=== PATIENT | male | born 1980 | race Caucasian/White ===

== ENCOUNTER 2023-01-23 10:17 | Emergency (ER) | payer MEDICAID, SELFPAY ==
[2023-01-23 10:21] VITALS: BP 156/87; PULSE 76; RESP 16; TEMP 36; O2SAT 99
--- NOTE | 2023-01-23 10:30 | DI.CT_ITS ---
Exam(s) CT ABDOMEN PELVIS WO/W EXAM: CT ABDOMEN PELVIS WO/W CLINICAL HISTORY: PleaseCT urogram 2/2rightFP hematuria TECHNIQUE: Imaging Protocol: Axial computed tomography images with coronal and sagittal reformatted images were created and reviewed CONTRAST MATERIAL: Intravenous: Omnipaque 350 Contrast volume:100 mL Oral: No COMPARISON: No exams were available for comparison FINDINGS: ABDOMEN: Lung Bases: Normal where visualized. Liver: Normal density. No measurable mass. Portal, Superior Mesenteric, and Splenic Veins: Unremarkable. Gallbladder and Biliary Tract: No radiodense calculus or dilation. Pancreas: Normal density, no abnormal calcifications or inflammatory process. Spleen: Normal. Adrenals: No masses seen. Kidneys: Normal size, contour and axis. No radiodense stones or obstructive uropathy. No masses seen. Abdominal Aorta: Abdominal portion non-dilated. Bowel: No obstruction or bowel wall thickening. Appendix is unremarkable. Peritoneal Cavity: No ascites, collection or mesenteric inflammatory response. No free air. Lymph Nodes: Within normal limits. Bones: Within normal limits for the patient's age. 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 Soft Tissues: Unremarkable. PELVIS: Bladder: Symmetric distention, no gross wall thickening. Reproductive Organs: Unremarkable as visualized. Lymph Nodes: Within normal limits. Bones: Within normal limits for the patient's age. IMPRESSION: 1. No acute abdominal or pelvic process. 2. No evidence of nephrolithiasis or hydronephrosis. 3. Findings were discussed with the emergency department at 12:46 p.m. on 01/23/2023. RADIATION DOSE DELIVERED: 2,220.57mGy.cm Total DLP 2,220.57mGy.cm Total DLP DATA REPOSITORY: All CT scans at this facility are submitted to the National Radiology Data Registry (NRDR) Dose Index Registry (DIR) with the [employer] (ACR). RADIATION OPTIMIZATION: All CT scans at this facility use at least one of these dose optimization te chniques: automated exposure control; mA and/or kV adjustment per patient size (includes targeted exa ms where dose is matched to clinical indication); or iterative reconstruction.
--- NOTE | 2023-01-23 10:46 | W.ED.GENAD ---
Discharge Plan Disposition Patient Disposition: Home Discharge Details Clinical Impression: Hematuria Primary Care Provider: None,None ED Provider: Fransisco Saha Home Meds and New Rx's Prescriptions: No Action No Known Home Meds Discharge Instructions Instructions: Hematuria (ED) Additional Instructions: You were seen in the emergency department for your hematuria which is bleeding from your urethra. If you develop sudden onset abdominal pain any burning when you urinate or if you have any other concerns please return to the emergency department. Otherwise you will receive a call for follow-up with a primary care provider in the next 2 weeks to have your urine checked again. If you develop any fevers or flank pain please return to the emergency department. Discharge Data Discharge Date/Time-TO BE ENTERED AT DEPARTURE: 01/23/23 14:13 Medical Decision Making This is an overall very well-appearing normothermic and not tachycardic previously healthy 42-year-old male with recent trauma to right flank now with hematuria concerning for intra-abdominal trauma versus renal injury. Will complete CT scan of abdomen pelvis with and without contrast to also assess for malignancy based on the patient's age. He does not have risk factors for malignancy as he is not on cyclophosphamide nor has he had any recent pelvic radiation nor history of malignancy. He is not a tobacco smoker and he denies exposure to any chemical substances or dyes. He is not a routine ibuprofen user to suggest renal injury secondary to NSAIDs. He has no history of sickle cell disease. He has never had a urinary tract infection and he denies dysuria frequency. He has never had a sexually transmitted infection and is in a monogamous sexual relationship so no concern for sexually transmitted infection. Will assess hemoglobin and renal function with CBC and BMP respectively. Based on age and lack of vascular risk factors I am not concerned for AAA. I advised patient that if his evaluation was reassuring in the ED that he would benefit from repeat urinalysis. 12:47 PM Reassuring basic metabolic panel with creatinine of 0.85. Very mild hyperglycemia with a glucose of 111 but normal bicarbonate. CBC with no anemia no thrombocytopenia nor any leukocytosis. Dr. Sherwood from radiology read the patient's CT which showed no acute abdominal or pelvic processes. No evidence of nephrolithiasis nor hydronephrosis. We are still awaiting urinalysis. We will add on a CK to assess for myoglobinuria and rhabdomyolysis. 2:15pm I spoke to Dr. Ceja from urology who will follow up with patient in 2-4 weeks. HPI General Date/Time Provider Initiated Documentation: 01/23/23 10:18. HPI Narrative: This is a previously healthy 42-year-old male arriving to the emergency department via private vehicle with his in the setting of hematuria. Patient notes that this morning while he was sitting on the toilet having a bowel movement he noticed hematuria. He had previously voided once earlier in the morning and had not had hematuria. He denies any bright red blood per rectum at any rectal bleeding. He smokes marijuana but denies routine tobacco, ethanol, and illicits. He has not used any chemical dyes nor chemicals at work. 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 He has never had any history of urological procedures nor any malignancies in the past. He took ibuprofen several weeks ago but does not routinely take ibuprofen or other NSAIDs. He has never had pelvic radiation. He is sexually active with a single female partner. They are monogamous. He has never had a sexually transmitted infection. He has never had a urinary tract infection. He denies history of sickle cell disease. He does note that approximately 1 month ago he fell down the stairs and struck his right flank on a corner of a stair. He has subsequently seen his chiropractor and was performing a bend 3 weeks ago over a chair when he fell over his head and had pain in his back. He felt as if he subsequently had swelling in his lower abdomen. He is also felt some wheezing in his lungs but denies any fevers and shortness of breath. He was nauseous yesterday and endorse generalized malaise but has not been vomiting. Related Data Home Medications Medication Instructions Recorded Confirmed Unknown [No Known Home Meds] 01/23/23 01/23/23 Allergies Allergy/AdvReac Type Severity Reaction Status Date / Time No Known Allergies Allergy Unverified 01/23/23 10:27 General Stated Complaint: Urinary MAURIZIO: 4 PFSH All Active Problems (Updated 01/23/23 @ 14:00 by Fransisco Saha MD) Hematuria (Acute) Social History Smoking/Tobacco Use Status: Never Smoking risk assessment performed?: Yes Alcohol Intake: never Drug use: Daily Substance use type: marijuana Exam Narrative Exam Narrative: General: Well-appearing in no acute distress speaking in complete sentences. Head: Normocephalic, atraumatic Ear, nose, mouth, throat: Grossly normal inspection. Normal voice, handling secretions normally. Eyes: Nonicteric sclera with no conjunctival pallor. Neck: Trachea midline. Cardiovascular: Well-perfused distal extremities. Respiratory: Nonlabored respiration. Gastrointestinal: Nondistended abdomen. Soft nontender abdomen. Back: Overlying the right flank there is a small approximately 2 x 2 centimeter well-healing bruise with associated mild tenderness. No midline thoracic nor lumbar spinal tenderness. Musculoskeletal: No edema. Moving all 4 extremities spontaneously. Skin: Normal for age and race, grossly normal temperature and turgor. No acute rash. Neurologic: Alert and appropriate, no apparent acute deficits. Psychiatric: Mood and manner are appropriate. Grooming and personal hygiene are appropriate. Course Vital Signs Vital signs: Vital Signs Temperature 36.0 C L 01/23/23 10:21 Pulse 76 01/23/23 10:21 Respiratory Rate 16 01/23/23 10:21 Blood Pressure 156/87 H 01/23/23 10:21 Pulse Oximetry 99 01/23/23 10:21 Temperature 36.0 C L 01/23/23 10:21 Temperature Source Tympanic 01/23/23 10:21 Pulse 76 01/23/23 10:21 Respiratory Rate 16 01/23/23 10:21 Respiratory Effort Short of Breath 01/23/23 10:25 Blood Pressure 156/87 H 01/23/23 10:21 Pulse Oximetry 99 01/23/23 10:21 Pain Level 2 01/23/23 10:26 PAWSS Have you Been Recently Intoxicated or Drunk Within the Last 30 days?: No Have you Ever Experienced Previous Episodes of Alcohol Withdrawal?: No Have you ever Experienced Withdrawal Seizures?: No Have you ever Experienced Delirium Tremens(DT)s?: No Have you ever undergone Alcohol Rehabilitation Treatment (i.e, inpt ot outpatient treatment programs)?: No Have you ever Experienced Blackouts?: No Have you ever Combined Alcohol with other Downers within the last 90 days?: No Have you ever Combined Alcohol with any other Substance of Abuse during the last 90 days?: No Result: 0
[2023-01-23 11:12] LABS: Abs Immature Grans 0.01 10^3/uL (0.0-0.06); Absolute Basophil Count 0.04 10^3/uL (0.0-0.2); Absolute Eosinophil Count 0.05 10^3/uL (0.0-0.7); Absolute Lymphocyte Count 1.74 10^3/uL (1.2-3.4); Absolute Monocyte Count 0.35 10^3/uL (0.1-0.8); Absolute Neutrophil Count 3.44 10^3/uL (1.2-6.7); Basophils % 0.7; Eosinophils % 0.9; HCT 41.9 % (40.0-50.0); HGB 14.4 g/dL (13.5-17.5); Immature Grans % 0.2; Lymphocytes % 30.9; MCH 31.6 pg (27.0-33.0); MCHC 34.4 % (32.0-36.0); MCV 92 fL (80-95); Monocytes % 6.2; Neutrophils % 61.1; Platelet Count 257 10^3/uL (130-400); RBC 4.56 10^6/uL (4.36-5.78); RDW 11.9 % (11.8-14.1); RDW-SD 39.9 fL; WBC 5.63 10^3/uL (4.4-10.8)
[2023-01-23] MEDS: Omnipaque 350 MG/ML 500 ML BTL-Imaging package IJ (12:33)
[2023-01-23] MEDS: Normal Saline - Diluent 50 ML VIAL IJ (12:34)
[2023-01-23] MEDS: Normal Saline Flush 10 ML SYR IVP (12:34)
[2023-01-23 13:07] LABS: Anion Gap 9.1 mmol/L (3-11); BUN 16 mg/dL (7-18); CO2 25.9 mmol/L (21.0-32.0); CREATININE 0.9 mg/dL (0.70-1.30); Calcium 9.2 mg/dL (8.5-10.1); Chloride 105 mmol/L (98-107); Estimated GFR 110.04 (mL/min/1.73m2); Glucose 111 mg/dL (74-106); Potassium 3.7 mmol/L (3.5-5.1); Sodium 140 mmol/L (136-145)
[2023-01-23 13:15] LABS: Creatine Kinase 195 U/L (39-308)
[2023-01-23 13:32] LABS: Bilirubin Negative (Negative); Blood Moderate (Negative); Clarity Sl Cloudy (Clear); Glucose Negative (Negative); Ketones 15 mg/dL (Negative); Leukocyte Esterase Negative (Negative); Nitrite Negative (Negative); Urobilinogen 0.2 mg/dL (Up to 0.2)
[2023-01-23 13:50] LABS: Epithelial Cells Negative HPF (Negative); Other Cells Negative (Negative); RBC >50 HPF (0-2); WBC Negative HPF (0-5)
[2023-01-23 13:51] LABS: Bacteria Rare HPF (Negative); C & S Indicated? No; Casts Negative LPF (Negative); Crystals Negative HPF (Negative); Mucus Negative (Negative)
[2023-01-23 14:11] VITALS: BP 137/67; PULSE 89; RESP 16; TEMP 36.7; O2SAT 99
--- NOTE | 2023-01-23 14:53 | NUR.NOTE ---
Nursing Note:Referral given to Care Management for needs PCP, establish care, repeat urinalysis, hematuria/in 2 weeks.
--- NOTE | 2023-01-24 08:55 | NUR.NOTE ---
Nursing Note: Patient called stating that he wanted another urology referral besides [facility]. He does have an appt. at [facility]. I suggested to him that he could call his PCP for a referral to the second one, he could also call that office to try and make an appt. and if they need the note for reference call medical records to have it faxed.
--- NOTE | 2023-01-24 13:32 | PDOC.ERCMACT ---
- If Service Date Differs Date of service: 01/24/23 Time of Service: 13:32 Care Management Activity Note Jaquan is seen in the ED for hematuria. At the request of ED provider, AKI coordinates a referral to Tan Patel MD, of [facility], t-doc, to assist Jaquan in obtaining a follow up appointment in 2 weeks and in establishing care with a PCP. He has Medicaid for insurance.
== END 2023-01-23 14:13 | disposition home or self-care (01) ==
PROVIDERS: Emergency Provider Emergency Medicine
DX: R31.9 Hematuria, unspecified (principal); R73.9 Hyperglycemia, unspecified; S30.1XXA Contusion of abdominal wall, initial encounter; X58.XXXA Exposure to other specified factors, initial encounter
CPT/HCPCS: 36415; 80048; 82550; 99285; 74178; 81003; 81015; 85025; 99282

== ENCOUNTER 2023-01-25 17:24 | Outpatient (REF) | payer MEDICAID, SELFPAY ==
[2023-01-25 21:54] LABS: Bilirubin Negative (Negative); Blood Trace-intact (Negative); Clarity Clear (Clear); Glucose Negative (Negative); Ketones 40 mg/dL (Negative); Leukocyte Esterase Negative (Negative); Nitrite Negative (Negative); Urobilinogen 0.2 mg/dL (Up to 0.2); pH 5.5 (5-8)
[2023-01-25 21:57] LABS: PTT Activated 26.8 sec (21.5-31.9)
[2023-01-25 22:03] LABS: Bacteria Rare HPF (Negative); C & S Indicated? No; Casts Negative LPF (Negative); Crystals Negative HPF (Negative); Epithelial Cells Rare HPF (Negative); Mucus Negative (Negative); RBC 0-2 HPF (0-2); WBC Negative HPF (0-5)
[2023-01-25 22:08] LABS: TSH (W/Ref FT4) 1.01 uIU/mL (0.36-3.74)
[2023-01-26 19:41] LABS: PSA, Screening 0.7 ng/mL (<=2.5)
== END 2023-01-25 17:25 | disposition home or self-care (01) ==
LOC: NCHCN 17:24
PROVIDERS: Visit Provider Family Medicine
DX: R31.9 Hematuria, unspecified (principal)
CPT/HCPCS: 84153; 81003; 81015; 84443; 85610; 85730

== ENCOUNTER 2024-07-25 17:48 | Emergency (ER) | payer MEDICAID, SELFPAY ==
[2024-07-25 17:51] VITALS: BP 141/84; PULSE 94; RESP 18; TEMP 36.4; O2SAT 97
--- NOTE | 2024-07-25 18:15 | DI.RAD_ITS ---
Exam(s) XR CHEST 2V PA LATERAL EXAM: XR CHEST 2V PA LATERAL CLINICAL HISTORY: fever, shortness of breath. TECHNIQUE: 2D digital imaging was performed. COMPARISON: CT CT ABDOMEN PELVIS WO/W from 01/23/2023 FINDINGS: 2 views: Heart size is normal. The mediastinum is not widened. Left lung is clear. There is a vertically orientated linear lucency projected over the medial aspect of the right upper l obe. Possibly representing scarring or atypical appearance of accessory azygos lobe. Cannot exclude atypical pneumothorax. The remainder of the right lung is clear. There are no pleural effusions. IMPRESSION: Right lung finding as above. Possibly scarring or pleural reflection versus atypical accessory azygo s lobe. If clinically indicated follow-up CT scan of the chest can be performed for added specificit y. DATA REPOSITORY: RADIATION DOSE DELIVERED:
[2024-07-25 18:19] VITALS: RESP 16
[2024-07-25 18:23] VITALS: BP 141/84; PULSE 94; RESP 16; TEMP 37.7; O2SAT 97
--- OUTSIDE RECORDS SUMMARY | 2024-07-25 19:11 | XMS_ITS | Continuity of Care Document ---
Author Organization [facility] Address [address] [place] [address] Care Team Providers Care Metal Machine Setter Name Role Phone SLOANE GRIFFIN, MANASA Andersen Primary Care Physician [phone] Encounter [facility] NBR [id number] Date(s): 11/20/23 - 11/20/[address] [address] [place] Encounter Diagnosis Pain in right shoulder(Final) - Discharge Disposition: Home or Self Care Attending Physician: Franky Lyons MD Admitting Physician: Franky Lyons MD Referring Physician: Franky Lyons MD Allergies, Adverse Reactions, Alerts Substance Reaction Severity Status penicillins Unknown Unknown Active Problem List Condition Confirmation Course Effective Dates Status Health St atus Informant Impingement of right shoulder Confirmed Active Results Radiology Reports * Exam Date Time Procedure Performing Provider Status 11/20/23 9:23 AM XR Shoulder Complete 2+ Views Right Kirk Meng; Auth (Verified) Notes: (XR Shoulder Complete 2+ Views Right) Reason For Exam: right shoulder pain XR Shoulder Complete 2+ Views Right PROCEDURE INFORMATION: Exam: XR Right Shoulder Exam date and time: 11/20/2023 9:14 AM Age: 43 years old Clinical indication: Pain in right shoulder; Pain in right shoulder; Additional info: Right shoulder pain TECHNIQUE: Imaging protocol: Radiologic exam of the right shoulder. Views: 2 or more views. COMPARISON: No relevant prior studies available. FINDINGS: Bones/joints: Minimal degenerative change. No acute bony injury or malalignment. Soft tissues: Unremarkable soft tissues. IMPRESSION: Minimal degenerative change. THIS DOCUMENT HAS BEEN ELECTRONICALLY SIGNED BY JESUS ALBERTO MCKEON MD on 11/20/2023 11:35 AM Final Signed by: Jesus Alberto Mckeon MD Signed (Electronic Signature): 11/20/2023 11:35 am Social History Social History Type Response Tobacco Never tobacco user T obacco Use:. Sex Patient Care team information Care Team Personnel Name: MAANSA ANTON MD Position: No Access Member Role: Primary Care Physician Address: Address: [address] [place] [id number]- Care Team Related Persons Name: DANELLE QUAN
--- OUTSIDE RECORDS SUMMARY | 2024-07-25 19:11 | XMS_ITS | Data Portability ---
Author Organization [place] - [facility] Address [address] [place] [address] Assessment No assessment recorded. Plan of Treatment Reminders Order Date Submit Date Provider Last Modified By Organization Details Last Modified Time Details Appointments None recorded. Lab rapid strep group A, throat 2023 024 [email or web address] [facility], [address] [place] [address], [id number], 14:15:14 Referral None recorded. Procedures None recorded. Surgeries None recorded. Imaging None recorded. Medication Orders Augmentin 875 mg-125 mg tablet 2023 024 TIFF[id number], [address] [place], [address], 4 09:08:23 Patient TargetsNo targets recorded. Patient InstructionsNo instructions recorded. Reason for Referral None Reported. Results Created Date Observation Date Name Description Value Unit Range Abnormal Flag Note LastModifiedBy Organization Detail LastModifiedTime 07/23/20 24 07/23/2024 rapid strep group A, throa t Strep negati ve Not Available [address], [address], 07/23/2024 09:16:44 Result Notes None recorded. Problems Name Problem SNOMED Code Status Onset Date Resolution Date Notes Provider Name and Address Organization Details Recorded Time Blood in urine 47163946 Active 2022 Problem Code: R31.9; Problem Code Type: ICD-10; KASH NAGY RN null, [facility] 4 07:52:46 Abdominal pain 03951567 Active 2022 Problem Code: R10.9; Problem Code Type: ICD-10; KASH NAGY RN null, [facility] 4 07:52:46 Pain in thoracic spine 456777854 Active 2022 Problem Code: M54.9; Problem Code Type: ICD-10; KASH NAGY RN null, [facility] 4 07:52:46 Biceps tendinitis 853950500 Active 2022 Problem Code: M75.21; Problem Code Type: ICD-10; NATALIIA EDMONDS, [facility] 4 07:52:46 Sore throat 103958085 Active 2023 MICHAEL KRAUSE [facility] [address], [place], [address] [place] [address] 4 09:08:02 Problem Notes None recorded. Medical Equipment None Reported. Allergies No known drug allergies Medications Name Sig Start Date Stop Date Status Note LastModified by Organization Details LastModified Time Augmentin 875 mg-125 mg tablet Take 1 tablet every 12 hours by oral route. 024 active Not Available Not Available Not Avai lable Vitals Date Recorded Body temperature Oxygen saturation Oxygen saturation in Arterial blood by Pulse oximetry Heart rate Body weight Body mass index (BMI) Body height Systolic blood pressure Diastolic blood pressure Provider Name and Address Organization Details Last Updated DateTime 4 98 [degF] 99 % 99 % 70 /min 35923.8 7 g 23.7 kg/m2 182.88 cm 110 mm[Hg] 70 mm[Hg] DANYELLE LOCKHART MA [facility] 4 08:36:49 Social History None recorded. Functional Status None recorded. Mental Status None recorded. Family History Nothing Reported. Medical History No medical history recorded. Past Encounters Encounter ID Performer Location Encounter Start Date Encounter Closed Date Diagnosis/Indication Diagnosis SNOMED-CT Code Diagnosis ICD10 Code [id number] [facility] [address] [place] [address] 07/23/2024 08:28:30 07/23/2024 10:23:44 Sore throat 694017976 J02.9 Health Concerns Section Related Observation LastModified by Organization Detai ls LastModified Time None Recorded Concern Status LastModified by Organization Details LastModified Time None Recorded Advance Directives Directive None Recorded Payers Encounter Date Sequence Insurance Name Policy Number Policy Mccoy Covered Member ID Mccoy Member ID Guarantor Name 07/23/2024 1 [facility] (MEDICAID) Jaquan Mattino [id number] Jaquan Banuelos Notes Date Note Type Note Provider Name and Address Organization Details Recorded Time 07/23/2024 text/html HPI Notes: The patient presents with a chief complaint of significant throat pain mostly on the right side, which began a few days ago after burning their throat with hot food. The pain worsened after consuming a crusty piece of bread, which the patient believes caused further injury to the burn spot. The patient reports that the pain has been persistent and has made it difficult to sleep. They have been able to manage soft foods but have not eaten this morning due to the pain. He does feel as though he made symptoms worse after smoking cannabis and drinking coffee. The patient believes they saw puss in their throat. They deny having a stuffy nose, fever, or breathing issues. The patient took ibuprofen at 3 am to help with sleep and reports a very focal gland swelling. MICHAEL KRAUSE [address], [place], [address], [facility]. 07/23/2024 11:49:25
--- OUTSIDE RECORDS SUMMARY | 2024-07-25 19:11 | XMS_ITS | Continuity of Care Document ---
Author Organization [facility] Address [address] [place] [address] Care Team Providers Care Executive Assistant To President Name Role Phone SLOANE GRIFFIN, MANASA Andersen Primary Care Physician [phone] Encounter [facility] NBR [id number] Date(s): 11/20/23 - 11/20/23 [facility] [address] [place], [place] [address] Encounter Diagnosis Impingement of right shoulder(Discharge Diagnosis) - 11/20/23 Discharge Disposition: Home or Self Care Attending Physician: Franky Lyons MD Allergies, Adverse Reactions, Alerts Substance Reaction Severity Status penicillins Unknown Unknown Active Problem List Condition Confirmation Course Effective Dates Status Health St atus Informant Impingement of right shoulder Confirmed Active Vital Signs Most recent to oldest [Reference Range]: 1 Peripheral Pulse Rate [60-100 bpm] 71 bp m (11/20/23 9:46 AM) Blood Pressure [90-140/60-90 mmHg] 128/7 8mmHg (11/20/23 9:46 AM) Mean Arterial Pressure, Cuff [70-110 mmH g] 95 mmHg (11/20/23 9:46 AM) Weight 80.74 kg (11/20/23 9:46 AM) Weight Measured (lbs) 178.001 lb (11/20/23 9:46 AM) Weight Dosing 80.740 kg (11/20/23 9:46 AM) Height 182.88 cm (11/20/23 9:46 AM) Height/Length Measured (inches) 72 inch (11/20/23 9:46 AM) BSA Measured 2.03 m2 (11/20/23 9:46 AM) Body Mass Index 24.14 kg/m2 (11/20/23 9:46 AM) Social History Social History Type Response Tobacco Never tobacco user T obacco Use:. Sex Physician Outpatient Note * Franky Lyons MD: PERFORM Event Display: Office Clinic Note Physician Authored Date: [id number] YUMIKO BLOOD :1980 Age:43 years Sex:Male Visit Date:11/20/2023 Primary Care Physician: SLOANE GRIFFIN, MANASA Andersen Chief Complaint Right Shoulder Pain History of Present Illness The patient is a 43-year-old gentleman??who??back in December 2022??fell down a staircase roughly 16 feet.?? He had significant trauma to his back and actually also injured his kidney.?? At the same time he also noted that he has some pain in the shoulder.?? He saw his primary care physician and was sent to??physical therapy??but he had mostly manipulation and was not given specific exercises??and says this did not help his pain.?? He does say however that??he has worked on cuff strengthening in the past??and??has tried using the bands recently without significant improvement.?? He says he has pain??pushing up from a seated position he has pain with lifting??anything up from the floor he has pain reaching above his head.?? He localizes the majority the pain to the lateral aspect of the shoulder but also has some posterior pain. Physical Exam Vitals & Measurements HR:??71??(Peripheral)?? BP:??128/78?? SpO2:??96%?? HT:??182.88??cm?? WT:??80.74??kg?? BMI:??24.14?? Pain Score:??5?? BSA:??2.03?? Review of studies:??X-rays of the right shoulder reviewed and are negative. ?? Both shoulders are examined. Range of motion of the shoulder is examined in the forward elevation, abduction, external rotation and internal rotation behind the back planes. External rotation is assessed both with the arm in neutral adduction and at 90 degrees of abduction. Similarly internal rotation is performed at 90 degrees of abduction and is compared with the contralateral side. Neer and Alvarez impingement signs are examined. Strength is assessed in forward elevation, abduction, externaland internal rotation planes.?Cross-arm adduction test is examined. The shoulder is systematically palpated anteriorlyin the region of the coracoid process, the anterior joint line and bicipital groove. The AC joint is palpated. The greater tuberosity is palpated. The posterior joint line is palpated. Ocampo and active compression tests are performed. The supraspinatus and infraspinatus fossa are examined for signs of atrophy. Stability is test using the apprehension, relocation and Jerk Test. ?? Post exam the right shoulder shows??a full range of motion, there is mildly positive Neer and Alvarez impingement signs,??very mild pain with supraspinatus isolation, there is 5-/5 strength external Tatian,??5-/5 strength to abduction.?? 4+ out of 5 strength internal rotation.?? Negative apprehension, negative relocation, negative jerk test. Assessment/Plan 1.??Impingement of right shoulder??M25.811 Patient with what I believe is??rotator cuff pain likely subacromial impingement.?? As the patient is already tried exercises I did offer a subacromial injection today but he wished to hold off.?? I also therefore offered an MRI to be sure he does not have a tear but again patient??at this point wanted to go back and redouble efforts on his exercises??if he does not see improvement he will let meknow and we will either discuss more advanced imaging or an injection. Orders: XR Shoulder Complete 2+ Views Right, 11/20/23 9:07:00 EST, Routine, Reason: right shoulder pain, Transport Mode: Ambulatory, Right shoulder pain, ABN Status: Not Required Problem List/Past Medical History Ongoing Impingement of right shoulder Historical No qualifying data Medications No active medications Allergies penicillins??(Unknown) Social History Alcohol Past Electronic Cigarette/Vaping Electronic Cigarette Use: Never. Tobacco Never tobacco user Tobacco Use:. Electronically Signed on 11/20/23 10:28 AM Franky Lyons MD Patient Care team information Care Team Personnel Name: MANASA ANTON MD Position: No Access Member Role: Primary Care Physician Address: Address: [address] [place] [address] [place] [id number] Care Team Related Persons Name: DANELLE QUAN
--- OUTSIDE RECORDS SUMMARY | 2024-07-25 19:12 | XMS_ITS | Clinical Summary ---
Author Organization [facility] Address [address] [place] [address] Care Team Providers Care Employment Officer Name Role Phone Arleth Castellanos MD Primary Care Provider [phone] Allergies Active Allergy Reactions Criticality Noted Date Comments Other - See Comments 01/30/2023 Jackfruit Medications No known medications Social History Tobacco Use Types Packs/Day Years Used Date Smoking Tobacco: Never Smokeless Tobacco: Never Tobacco Cessation:Counseling Given: No Alcohol Use Standard Drinks/Week Comments Not Currently 0 (1 standard drink = 0.6 oz pur e alcohol) Sex and Gender Information Value Date Recorded Sex Assigned at Not on file Gender Identity Male 06/01/2023 17:15 EDT Sexual Orientation Not on file Obstetrics History Plan of Treatment Health Maintenance Due Date Last Done Comments Hepatitis C Screen 1981 Hepatitis B Vaccine (1 of 3 - 19+ 3-dose series) 03/15 COVID-19 Vaccine ( season) 2023 Care Teams Employment Officer Relationship Specialty Start Date End Date Arleth Castellanos MD [address] [place] [address] PCP - General Family Medicine - Primary Care 01/30/23
--- OUTSIDE RECORDS SUMMARY | 2024-07-25 19:12 | XMS_ITS | Encounter Summary ---
Author Organization [facility] Address [address] [place] [address] Care Team Providers Care Assistant Kitchen Manager Name Role Phone None, Provider Primary Care Provider Arleth Garcia MD Primary Care Provider [phone] Encounter Details Date Type Department Care Team (Late st Contact Info) Description 01/26/2023 Lab Requisition [facility] Pathology & Laboratory Medicine - [address] [address] Outr Resulting Lab, Provider Social History Tobacco Use Types Packs/Day Years Used Date Smoking Tobacco: Never Assessed Sex and Gender Information Value Date Recorded Sex Assigned at Not on file Gender Identity Male 06/01/2023 17:15 EDT Sexual Orientation Not on file documented as of this encounter Plan of Treatment Not on file documented as of this encounter Procedures Procedure Name Priority Date/Time Associated Diagnosis Comments PSA TOTAL, DIAGNOSTIC Routine 01/25/2023 16:45 EDT documented in this encounter Results * PSA TOTAL, DIAGNOSTIC (01/25/2023 16:45 EDT) PSA 0.7 <=2.5 ng/mL 01/26/2023 19:37 EDT [facility] Blood VENOUS BLOOD / Unknown 01/25/2023 16:45 EDT 01/26/2023 18:43 EDT Narrative [facility] - 01/26/2023 19:37 EDT NOTE: Serum PSA concentration should not be interpreted as absolute evidence for the presence or absence of malignant disease. Assayed on Siemens ADVIA Centaur XPT using chemiluminescent technology.??Values obtained by using different assay methods cannot be used interchangeably. Provider Outr Resulting Lab CHEMISTRY & BLOOD GAS ORDERABLES [facility] [address] [place] [address] documented in this encounter Visit Diagnoses Not on filedocumented in this encounter Care Teams Assistant Kitchen Manager Relationship Specialty Start Date End Date None, Provider PCP - General 01/29/23 01/29/23 Arleth Castellanos MD [address] [place] [phone] PCP - General Family Medicine - Primary Care 01/30/23 documented as of this encounter
--- OUTSIDE RECORDS SUMMARY | 2024-07-25 19:12 | XMS_ITS | Encounter Summary ---
Author Organization [facility] Address [address] [place] [address] Care Team Providers Care Geophysical E Logger Name Role Phone Arleth Castellanos MD Primary Care Provider Reason for Visit * Reason Onset Date Comments Labs Only 06/25/2023 Encounter Details Date Type Department Care Team (Late st Contact Info) Description 06/25/2023 Telephone [facility] Urology - [facility] [address] [place], [place] [phone] Aston Culp MD [address] [facility], [address] [place] [address] Labs Only Social History Tobacco Use Types Packs/Day Years Used Date Smoking Tobacco: Never Smokeless Tobacco: Never Alcohol Use Standard Drinks/Week Comments Not Currently 0 (1 standard drink = 0.6 oz pur e alcohol) Sex and Gender Information Value Date Recorded Sex Assigned at Not on file Gender Identity Male 06/01/2023 17:15 EDT Sexual Orientation Not on file documented as of this encounter Miscellaneous Notes * Telephone Encounter - Place, [place] - 06/25/2023 0950 EDT Patient in contact with Dr Culp, pt was supposed to submit urine for culture to PCP office, ines Mora at PCP office, pt has not submitted urine. Patient has appt with PCP Wednesday 06/27, refaxed order to [facility] [phone] nicolas Mora. documented in this encounter Plan of Treatment Not on file documented as of this encounter Visit Diagnoses Not on filedocumented in this encounter Care Teams Geophysical E Logger Relationship Specialty Start Date End Date Arleth Castellanos MD [address] [place] [address] PCP - General Family Medicine - Primary Care 01/30/23 documented as of this encounter
--- OUTSIDE RECORDS SUMMARY | 2024-07-25 19:12 | XMS_ITS | Encounter Summary ---
Author Organization [facility] Address [address] [place] [address] Care Team Providers Care Front End Software Developer Name Role Phone None, Provider Primary Care Provider Unavailabl e Reason for Visit * Reason Onset Date Comments Appointment Related 01/29/2023 Encounter Details Date Type Department Care Team (Late st Contact Info) Description 01/29/2023 Telephone [facility] Urology - [address] [phone] Aston Culp MD [address] [facility], [address] [place] [address] Appointment Related Social History Tobacco Use Types Packs/Day Years Used Date Smoking Tobacco: Never Assessed Sex and Gender Information Value Date Recorded Sex Assigned at Not on file Gender Identity Male 06/01/2023 17:15 EDT Sexual Orientation Not on file documented as of this encounter Miscellaneous Notes * Telephone Encounter - [place] - 01/29/2023 1525 EDT LM for pt to call to schedule appt with Dr Culp. Pt called back and was scheduled for NPV with Dr Culp. documented in this encounter Plan of Treatment Not on file documented as of this encounter Visit Diagnoses Not on filedocumented in this encounter Care Teams Front End Software Developer Relationship Specialty Start Date End Date None, Provider PCP - General 01/29/23 01/29/23 documented as of this encounter
--- OUTSIDE RECORDS SUMMARY | 2024-07-25 19:12 | XMS_ITS | Encounter Summary ---
Author Organization [facility] Address [address] [place] [address] Care Team Providers Care Accountant Systems Name Role Phone Arleth Castellanos MD Primary Care Provider [phone] Reason for Visit * Reason Comments New Patient Visit Last saw blood on robb nday Encounter Details Date Type Department Care Team (Late st Contact Info) Description 01/30/2023 10:30 EDT Office Visit [facility] Urology - [address] [phone] Aston Culp MD [address] [facility], [address] [place] [address] Hematuria, gross (Primary Dx) Social History Tobacco Use Types Packs/Day Years Used Date Smoking Tobacco: Never Assessed Sex and Gender Information Value Date Recorded Sex Assigned at Not on file Gender Identity Male 06/01/2023 17:15 EDT Sexual Orientation Not on file documented as of this encounter Progress Notes * Aston Culp MD - 01/30/2023 1030 EDT Arleth Castellanos CC: Gross hematuria Initial visit HPI: mid December - 16 foot fall - no presentation Some urinary frequency - self-limited Last week gross initial / terminal hematuria x 5 days / ~24 urinations - some clots No associated pain Did ozone therapy / hyperbaric... No constipation Now back to normal: Min lower urinary tract symptoms (LUTS) - no I Q of L No BPH meds Nocturia - occasional 01/2023: PSA = 0.7 Hgb = 14.4 Creatinine = 0.9 coags - neg U/A - significant microhematuria CT urogram - neg - Pvol = 40 cc's No prior hematuria No constitutional No other active complaints ROS: ten systems reviewed - no active complaints o/w - all negative PMHx / FHx / social: reviewed today and updated in PRISM M / 0 + 1 homesteader nonsm / no FHx P/E: GEN:ao x 3 LUNGS: nl eff ABDOMEN: soft No nodes No edema Normal testes x 2 Normal penis No hernia IMP: Moderate BPH Low normal PSA Gross hematuria - resolved - NYD Minimal LUTS - nocturia PLAN: Cytology today F/U televisit after Possible cysto in F/U documented in this encounter Plan of Treatment Not on file documented as of this encounter Procedures Procedure Name Priority Date/Time Associated Diagnosis Comments NON RN CARE MANAGER/FNA CYTOLOGY Routine 01/30/2023 11:03 EDT Hematuria, gross documented in this encounter Results * NON RN CARE MANAGER/FNA CYTOLOGY (01/30/2023 11:03 EDT) Note to Patient The following pathology results have been interpreted by your pathologist and may be available to you before your health provider has had the opportunity to review them. Please allow time for your provider to receive these results and explore management options, if applicable. 01/31/2023 11:43 T [facility] Final Diagnosis URINE, VOIDED, CYTOLOGIC EVALUATION: - Negative for high grade urothelial carcinoma. 01/31/2023 11:43 [facility] Attestation By the signature below, the attending physician certifies that they have personally conducted a gross and/or microscopic examination of the described specimens and rendered or confirmed the above diagnosis. 01/31/2023 11:43 [facility] at 1143 Clinical History gross hematuria 01/31/2023 11:43 [facility] Gross Description A. 100 cc's of clear yellow fluid were received and processed by selective cellular enhancement technique. 01/31/2023 11:43 EDT [facility] Performing Lab [facility] 01/31/2023 11:43 EDT [facility] Scanned Images 01/31/2023 11:43 EDT [facility] Urine VOIDED URINE SPECIMEN / Unknown Urine Collect / Unknown 01/30/2023 11:03 EDT 01/30/2023 11:17 EDT Aston Culp MD PATHOLOGY ORDERAB LES [facility] [address] [place] [address] documented in this encounter Visit Diagnoses Diagnosis Hematuria, gross- Primary Gross hematuria documented in this encounter Care Teams Accountant Systems Relationship Specialty Start Date End Date Arleth Castellanos MD [address] [place] [address] PCP - General Family Medicine - Primary Care 01/30/23 documented as of this encounter
--- OUTSIDE RECORDS SUMMARY | 2024-07-25 19:12 | XMS_ITS | Continuity of Care Document ---
Author Organization [facility], [facility] Address [address] [place] [phone] Assessment No assessment recorded. Plan of Treatment Reminders Order Date Submit Date Provider Last Modified By Organization Details Last Modified Time Details Appointments None recorded. Lab rapid strep group A, throat 2023 024 [email or web address] [facility], [address] [place] [address], [id number], 14:15:14 Referral None recorded. Procedures None recorded. Surgeries None recorded. Imaging None recorded. Medication Orders Augmentin 875 mg-125 mg tablet 2023 024 [facility], [address] [place], [address], 4 09:08:23 Patient TargetsNo targets recorded. Patient InstructionsNo instructions recorded. Reason for Referral None Reported. Results Created Date Observation Date Name Description Value Unit Range Abnormal Flag Note LastModifiedBy Organization Detail LastModifiedTime 07/23/20 24 07/23/2024 rapid strep group A, throa t Strep negati ve Not Available [address], [address], 07/23/2024 09:16:44 Result Notes None recorded. Problems Name Problem SNOMED Code Status Onset Date Resolution Date Notes Provider Name and Address Organization Details Recorded Time Blood in urine 14787813 Active 2022 Problem Code: R31.9; Problem Code Type: ICD-10; KASH NAGY RN null, [facility] 4 07:52:46 Abdominal pain 78783531 Active 2022 Problem Code: R10.9; Problem Code Type: ICD-10; KASH NAGY RN [facility], [facility] 4 07:52:46 Pain in thoracic spine 513091262 Active 2022 Problem Code: M54.9; Problem Code Type: ICD-10; NATALIIA EDMONDS, [facility] 4 07:52:46 Biceps tendinitis 587994099 Active 2022 Problem Code: M75.21; Problem Code Type: ICD-10; NATALIIA EDMONDS, [facility] 4 07:52:46 Sore throat 195098546 Active 2023 MICHAEL KRAUSE [facility] [address], [place], [address] [place] [address] 4 09:08:02 Problem Notes None recorded. Medical [...] [degF] 99 % 99 % 70 /min 20108.8 7 g 23.7 kg/m2 182.88 cm 110 mm[Hg] 70 mm[Hg] DANYELLE LOCKHART MA [facility] 4 08:36:49 Social History None recorded. Functional Status None recorded. Mental Status None recorded. Family History Nothing Reported. Medical History No medical history recorded. Past Encounters Encounter ID Performer Location Encounter Start Date Encounter Closed Date Diagnosis/Indication Diagnosis SNOMED-CT Code Diagnosis ICD10 Code [id number] MICHAEL KRAUSE [facility] [address] [place] [address] 07/23/2024 08:28:30 07/23/2024 10:23:44 Sore throat 220002342 J02.9 Health Concerns Section Related Observation LastModified by Organization Detai ls LastModified Time None Recorded Concern Status LastModified by Organization Details LastModified Time None Recorded Payers Encounter Date Sequence Insurance Name Policy Number Policy Mccoy Covered Member ID Mccoy Member ID Guarantor Name 07/23/[address] [facility] (MEDICAID) Jaquan Vin [id number] Jaquan Banuelos Notes Date Note Type Note [...] gland swelling. MICHAEL KRAUSE [address], [place], [address], [facility]. 07/23/2024 11:49:25
--- OUTSIDE RECORDS SUMMARY | 2024-07-25 19:12 | XMS_ITS | Encounter Summary ---
Author Organization [facility] Address [address] [place] [address] Care Team Providers Care Melter Loader Name Role Phone Arleth Castellanos MD Primary Care Provider [phone] Reason for Visit * Reason Comments Cystoscopy Hematuria / Possible Cystoscopy Encounter Details Date Type Department Care Team (Late st Contact Info) Description 06/07/2023 10:[address] [facility] Urology - [facility] [address] [place], [place] [address] Aston Culp MD [address] [facility], [address] [place] [address] Scope, Cystoscopy Hematuria, gross (Primary Dx) Social History Tobacco [...] Progress Notes * Aston Culp MD - 06/07/2023 1015 EDT Arleth Castellanos (LAST TELEPHONE ENCOUNTER - 02/2023) IN-PERSON TODAY CC: Gross hematuria Last seen 01/2023 - initial visit HPI: Now recurrent x 7 days - terminal - no pain Cysto today - negative expect slight number urinary crystals Mid-December - 16 foot fall - no presentation Some urinary frequency - self-limited Last week gross initial / terminal hematuria x 5 days / ~24 urinations - some clots No associated pain Did ozone therapy / hyperbaric... Again no constipation Now back to normal: Min lower urinary tract symptoms (LUTS) - no I Q of L No BPH meds Nocturia - occasional 01/2023: PSA = 0.7 Hgb = 14.4 Creatinine = 0.9 coags - neg U/A - significant microhematuria CT urogram - neg - Pvol = 40 cc's Cytology - negative No constitutional No other active complaints ROS: ten systems reviewed - no active complaints o/w - all negative PMHx / FHx / social: reviewed today and updated in PRISM M / 0 + 1 homesteader nonsm / no FHx P/E: GEN:ao x 3 LUNGS: nl eff ABDOMEN: soft No nodes No edema Normal testes x 2 Normal penis No hernia BRI - 40 grams benign IMP: Known moderate BPH Low normal PSA Gross hematuria - resolved - NYD - negative cytology Minimal LUTS - nocturia PLAN: Cysto again discussed as standard of care - negative Conservative measures discussed in light of urinary crystals F/U Urology PRN * Aston Culp MD - 06/07/2023 1015 EDT URO Office Cystoscopy Office cystoscopy for: Hematuria. Anesthesia: none. Procedure: Patient identified, prepped and draped in usual sterile manner 14 polish. Flexible cystoscope inserted into urethra and guided into bladder under direct vision. Finding:normal urethra, normal prostate, normal bladder mucosa and normal orifices - slight number urinary crystals Plan: negative. Aston Culp MD June 07, 2023 documented in this encounter Plan of Treatment Not on file documented as of this encounter Visit Diagnoses Diagnosis Hematuria, gross- Primary Gross hematuria documented in this encounter Care Teams Melter Loader Relationship Specialty Start Date End Date Arleth Castellanos MD [address] [place] [address] PCP - General Family Medicine - Primary Care 01/30/23 documented as of this encounter
--- OUTSIDE RECORDS SUMMARY | 2024-07-25 19:12 | XMS_ITS | Encounter Summary ---
Author Organization [facility] Address [address] [place] [address] Care Team Providers Care Child Care Sitter Name Role Phone Arleth Castellanos MD Primary Care Provider [phone] Encounter Details Date Type Department Care Team (Late st Contact Info) Description 06/19/2023 Orders Only [facility] Urology - [address] [phone] Aston Culp MD [address] [facility], [address] [place] [address] Hematuria, gross (Primary Dx) Social [...] hematuria documented in this encounter Care Teams Child Care Sitter Relationship Specialty Start Date End Date Arleth Castellanos MD [address] [place] [phone] PCP - General Family Medicine - Primary Care 01/30/23 documented as of this encounter
--- OUTSIDE RECORDS SUMMARY | 2024-07-25 19:12 | XMS_ITS | Referral Summary ---
Author Organization [facility] Address [address] [place] [address] Care Team Providers Care Spray Cementer Name Role Phone Arleth Castellanos MD Primary Care Provider [phone] Allergies Active Allergy Reactions Criticality Noted Date [...] 17:15 EDT Sexual Orientation Not on file Plan of Treatment Not on file Care Teams Spray Cementer Relationship Specialty Start Date End Date Arleth Castellanos MD [address] [place] [address] PCP - General Family Medicine - Primary Care 01/30/23
--- OUTSIDE RECORDS SUMMARY | 2024-07-25 19:12 | XMS_ITS | Encounter Summary ---
Author Organization [facility] Address [address] [place] [address] Care Team Providers Care Consumer Marketing Analyst Name Role Phone Unavailable Primary Care Provider Unavailabl e Reason for Visit * (Routine/Next Available) - Receiving Office to Obtain Authorization Specialty Diagnoses / Procedures Referred By Sd t Referred To Contact Procedures CT OUTSIDE IMAGES ABDOMEN PELVIS Imaging, External Referral ID Status Reason Start Date Expiration Date Visits Requested Visits Authorized [id number] Receiving Office to Obtain Authorization 01/30/2023 1 1 Encounter Details Date Type Department Care Team (Latest Contact Info) Description 01/23/2023 - 01/23/2023 23:59 EDT Hospital Encounter [facility] Secondary Reads [place] Discharge Disposition: Home or Self Care Social History Tobacco Use Types Packs/Day Years Used Date Smoking Tobacco: Never Assessed Sex and Gender Information Value Date Recorded Sex Assigned at Not on file Gender Identity Male 06/01/2023 17:15 EDT Sexual Orientation Not on file documented as of this encounter Discharge Disposition Disposition Code Departure Means Destination Home or Self Care documented in this encounter Plan of Treatment Not on file documented as of this encounter Procedures Procedure Name Priority Date/Time Associated Diagnosis Comments CT OUTSIDE IMAGES ABDOMEN PELVIS Routine 01/23/2023 5:59 EDT documented in this encounter Results * CT OUTSIDE IMAGES ABDOMEN PELVIS (01/23/2023 5:59 EDT) Narrative 01/30/2023 5:59 EDT This is a non-reportable exam. External Imaging IMG OTHER IMAGING OR DERABLES documented in this encounter Visit Diagnoses Not on filedocumented in this encounter
--- OUTSIDE RECORDS SUMMARY | 2024-07-25 19:12 | XMS_ITS | Encounter Summary ---
Author Organization [facility] Address [address] [place] [address] Care Team Providers Care Ground Wood Supervisor Name Role Phone Arleth Castellanos MD Primary Care Provider [phone] Reason for Visit * Reason Comments Follow-up Encounter Details Date Type Department Care Team (Late st Contact Info) Description 02/08/2023 14:00 EDT Telemedicine [facility] Urology - [address] [address] Aston Culp MD [address] [facility], [address] [place] [address] Gross hematuria (Primary Dx) Social History Tobacco Use Types Packs/Day Years Used Date Smoking Tobacco: Never Assessed Sex and Gender Information Value Date Recorded Sex Assigned at Not on file Gender Identity Male 06/01/2023 17:15 EDT Sexual Orientation Not on file documented as of this encounter Progress Notes * Aston Culp MD - 02/08/2023 1400 EDT Arleth Castellanos TELEPHONE ENCOUNTER CC: Gross hematuria Last seen - initial visit HPI: mid December - 16 foot [...] Pvol = 40 cc's Cytology - negative Cysto discussed as standard of care - patient refuses at present - will represent if any recurrent bout gross hematuria No prior hematuria No constitutional No other active complaints ROS: ten systems reviewed - no active complaints o/w - all negative PMHx / FHx / social: reviewed today and updated in PRISM M / 0 + 1 homesteader nonsm / no FHx P/E: N/A Prior: GEN:ao x 3 LUNGS: nl eff ABDOMEN: soft No nodes No edema Normal testes x 2 Normal penis No hernia IMP: Moderate BPH Low normal PSA Gross hematuria - resolved - NYD - negative cytology Minimal LUTS - nocturia PLAN: F/U Urology PRN Possible cysto in F/U - per patient - if recurrent hematuria This visit was conducted by telephone. I spent a total of 11 minutes in discussion with the patientas described in the progress note. The concept of ???Telemedicine?? has been described to the patient.? Patient has been informed of the anticipated benefits and possible risks.? Patient understands the information provided regardingtelemedicine, has had the opportunity to ask questions about this information, and all questions have been answered to patient???s satisfaction. Patient consents for the use of telemedicine in his/her medical care and authorizes the transmission of any relevant medical information to providers and their staff involved in patient???s medical or mental health care. Patient understands that they maybe responsible for copays, deductible or coinsurance for this service. documented in this encounter Plan of Treatment Not on file documented as of this encounter Visit Diagnoses Diagnosis Gross hematuria- Primary documented in this encounter Care Teams Ground Wood Supervisor Relationship Specialty Start Date End Date Arleth Castellanos MD [address] [place] [address] PCP - General Family Medicine - Primary Care 01/30/23 documented as of this encounter
--- OUTSIDE RECORDS SUMMARY | 2024-07-25 19:12 | XMS_ITS | Encounter Summary ---
Author Organization [facility] Address [address] [place] [address] Care Team Providers Care Sulphate Tester Name Role Phone Arleth Castellanos MD Primary Care Provider Reason for Visit * Reason Onset Date Comments Appointment Related 02/08/2023 Encounter Details Date Type Department Care Team (Late st Contact Info) Description 02/08/2023 Telephone [facility] Urology - [facility] [address], [place] [id number] Aston Culp MD [address] [facility] [place] [address] Appointment Related Social History Tobacco Use Types Packs/Day Years Used Date Smoking Tobacco: Never Assessed Sex and Gender Information Value Date Recorded Sex Assigned at Not on file Gender Identity Male 06/01/2023 17:15 EDT Sexual Orientation Not on file documented as of this encounter Miscellaneous Notes * Telephone Encounter - Lashon Anne - 02/08/2023 0943 EDT LM for pt to call back to schedule follow up telemed with Dr Culp. documented in this encounter Plan of Treatment Not on file documented as of this encounter Visit Diagnoses Not on filedocumented in this encounter Care Teams Sulphate Tester Relationship Specialty Start Date End Date Arleth Castellanos MD [address] [place] [address] PCP - General Family Medicine - Primary Care 01/30/23 documented as of this encounter
[2024-07-25 19:17] LABS: COVID-19 PCR Negative (Negative); Influenza A PCR Negative (Negative); Influenza B PCR Negative (Negative); RSV PCR Negative (Negative)
[2024-07-25 19:19] LABS: Source NASOPHARYNX
--- NOTE | 2024-07-25 19:30 | DI.CT_ITS ---
Exam(s) CT CHEST WO EXAM: CT CHEST WO CLINICAL HISTORY: eval for pneumothorax. TECHNIQUE: Multi planar reconstructions were performed. CONTRAST MATERIAL: None COMPARISON: CR,XR XR CHEST 2V PA LATERAL from 07/25/2024 FINDINGS: CHEST: LUNGS: There is a benign appearing 5 millimeter fissure related nodule in the right lung. There is a lso a tiny 2 millimeter benign calcified granuloma in the anterior basal segment of the right lower l obe. There is also a noncalcified 3 millimeter nodule in the right lower lobe. Mild increased jose ngs are noted adjacent to the right heart border in the medial segment of the right middle lobe. In the opposite-left lung there is a tiny 2 millimeter nodule in the lateral aspect of the left upper lobe. There are no pleural effusions. No significant focal findings in the trachea and mainstem bronchi. There is no evidence of pneumothorax, as per request. There is an accessory azygos lobe on the right noted, this explaining the finding on the chest x-ray. MEDIASTINUM: There is no obvious hilar nor mediastinal adenopathy. Visualized thyroid unremarkable.No obvious axillary adenopathy CARDIAC: Heart size is normal. There is no pericardial effusion.Caliber of the thoracic aorta is wit hin normal limits. VISUALIZED UPPER ABDOMEN:No significant findings. OSSEOUS: No significant osseous lesions.No fractures.. IMPRESSION: 1. There is no pneumothorax, as per request. Finding on chest x-rays explained by accessory azygos l obe fissure. 2. There are few small benign-appearing bilateral lung nodules as described above. Four patient is at low risk (minimal or absent history of smoking and of other known risk factors) no routine follow-up is indicated. For patient at high risk (history of smoking or other known risk fa ctors) consider repeat CT scan at 12 months. Reference: Alessio Keene. et al. Guidelines for management of incidental pulmonary nodules detected on CT images. From the Fleischner Society 2017. RADIATION DOSE DELIVERED: 273.56mGy.cm Total DLP DATA REPOSITORY: All CT scans at this facility are submitted to the National Radiology Data Registry (NRDR) Dose Index Registry (DIR) with the [employer] (ACR). RADIATION OPTIMIZATION: All CT scans at this facility use at least one of these dose optimization te chniques: automated exposure control; mA and/or kV adjustment per patient size (includes targeted exa ms where dose is matched to clinical indication); or iterative reconstruction.
[2024-07-25] MEDS: Prochlorperazine 10 MG/2 ML VIAL 5 MG IVP (19:36)
[2024-07-25] MEDS: Ketorolac 15 MG/ML VIAL 7.5 MG IVP (19:36)
[2024-07-25] MEDS: ACETAMINOPHEN 1,000 MG/100 ML BTL 400 MG IVPB (19:36)
[2024-07-25 19:43] LABS: Abs Immature Grans 0.01 10^3/uL (0.0-0.06); Absolute Basophil Count 0.03 10^3/uL (0.0-0.2); Absolute Eosinophil Count 0.01 10^3/uL (0.0-0.7); Absolute Lymphocyte Count 1.56 10^3/uL (1.2-3.4); Absolute Monocyte Count 0.58 10^3/uL (0.1-0.8); Absolute Neutrophil Count 4.67 10^3/uL (1.2-6.7); Basophils % 0.4 %; Eosinophils % 0.1 %; HCT 43.7 % (40.0-50.0); Immature Grans % 0.1 %; Lymphocytes % 22.7 %; MCH 32.2 pg (27.0-33.0); MCHC 34.3 % (32.0-36.0); MCV 94 fL (80-95); MPV 9.6 fL (8.0-11.0); Monocytes % 8.5 %; Neutrophils % 68.2 %; Platelet Count 209 10^3/uL (130-400); RBC 4.66 10^6/uL (4.36-5.78); RDW 11.6 % (11.8-14.1); RDW-SD 39.8 fL; WBC 6.86 10^3/uL (4.4-10.8)
[2024-07-25 19:52] LABS: Mono Screening Negative (Negative)
[2024-07-25 19:54] LABS: Bilirubin Small (Negative); Blood Negative (Negative); Clarity Clear (Clear); Glucose Negative (Negative); Ketones 80 mg/dL (Negative); Leukocyte Esterase Negative (Negative); Nitrite Negative (Negative); Specific Gravity >= 1.030 (1.005-1.025); Urobilinogen 0.2 mg/dL (Up to 0.2); pH 5.5 (5-8)
--- NOTE | 2024-07-25 19:54 | DI.VRAD_ITS ---
PROCEDURE INFORMATION: Exam: XR Chest Exam date and time: 07/25/2024 7:11 PM Age: 44 years old Clinical indication: Fever and shortness of breath; Additional info: Fever, shortness of breath TECHNIQUE: Imaging protocol: Radiologic exam of the chest. Views: 2 views. COMPARISON: CT ABDOMEN PELVIS WO/W 01/23/2023 12:06 PM FINDINGS: Lungs: Lungs are symmetrically hyperinflated with flattening of the hemidiaphragm. No focal consolidation or evidence of pulmonary edema. Pleural spaces: No pleural effusion. No pneumothorax. Heart/Mediastinum: Cardiomediastinal contours within normal limits. Bones/joints: No acute osseous finding. IMPRESSION: 1. No focal consolidation. 2. Hyperinflation. Dictated and Authenticated by: Apolinar Louis MD. Ordering:KAR Oates MD
[2024-07-25] MEDS: Lactated Ringers 1,000 ML 1000 ML IV (20:00)
[2024-07-25 20:02] LABS: ALT 28 U/L (16-63); AST 22 U/L (15-37); Albumin 4.1 g/dL (3.4-5.0); Alkaline Phosphatase 68 U/L (46-116); Anion Gap 10.7 mmol/L (3-11); BUN 14 mg/dL (7-18); Bilirubin, Total 0.71 mg/dL (0.2-1.0); CO2 28.3 mmol/L (21.0-32.0); CREATININE 0.9 mg/dL (0.70-1.30); Calcium 9.3 mg/dL (8.5-10.1); Chloride 100 mmol/L (98-107); Estimated GFR 108.68 (mL/min/1.73m2); Glucose 94 mg/dL (74-106); Potassium 3.8 mmol/L (3.5-5.1); Sodium 139 mmol/L (136-145); Total Protein 8.3 g/dL (6.4-8.2)
--- NOTE | 2024-07-25 20:43 | DI.VRAD_ITS ---
PROCEDURE INFORMATION: Exam: CT Chest Without Contrast; Diagnostic Exam date and time: 07/25/2024 8:13 PM Age: 44 years old Clinical indication: Abnormal findings; Abnormal radiologic exam of lung or chest; Shortness of breath; Additional info: Eval for pneumothorax TECHNIQUE: Imaging protocol: Diagnostic computed tomography of the chest without contrast. 3D rendering (Not supervised by radiologist): MIP and/or 3D reconstructed images were created by the technologist. COMPARISON: CR XR CHEST 2V PA LATERAL 07/25/2024 7:11 PM FINDINGS: Thyroid: No mass. Lungs: Mild focal subpleural nonspecific opacity within the medial right middle lobe suspected to represent atelectasis and/or scarring but nonspecific. No segmental consolidation. Note is made of accessory azygos fissure. Few small right lung pulmonary nodules measuring up to 4 mm (series 3, image 249). Pleural spaces: No pneumothorax. No pleural effusion. Heart: Heart is not enlarged. No pericardial effusion. No coronary vascular calcifications identified on exam. Lymph nodes: No pathologically enlarged axillary, mediastinal, or hilar lymph nodes. Vasculature: No thoracic aortic aneurysm. Bones/joints: Mild thoracic spondylosis. No acute fracture. Soft tissues: Unremarkable. IMPRESSION: 1. No pneumothorax. 2. Few small right lung pulmonary nodules measuring up to 4 mm. For patients at low risk (minimal or absent history of smoking and of other known risk factors), no routine follow-up is indicated. For patients at high risk (history of smoking or of other known risk factors), consider optional CT Chest at 12 months. (Reference: Alessio) REFERENCES: Stevehonakul H, et al. Guidelines for Management of Incidental Pulmonary Nodules Detected on CT Images: From the Fleischner Society 2017. Radiology. 2017;284(1):228-243. Dictated and Authenticated by: Apolinar Louis MD. Ordering:KAR Oates MD
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
[2024-07-28 10:41] LABS: Lyme Ab w Rflx to Lyme Confirm Negative (Negative)
--- NOTE | 2024-07-29 09:34 | NUR.NOTE ---
Patient called asking about the lab results that were sent out. I looked them up, reviewed with Dr. Barbour and the lyme is negative and the tick panel is still pending. I told the patient of the negative Lyme and the pending results. To call back for the tick panel results. He understood and will call. Nursing Note:
[2024-07-29 20:12] LABS: Anaplasma phagocytophilum Negative (Negative); B. miyamotoi PCR Negative (Negative); Babesia divergens/MO-1 Negative (Negative); Babesia duncani Negative (Negative); Babesia microti Negative (Negative); Ehrlichia chaffeensis Negative (Negative); Ehrlichia ewingii/canis Negative (Negative); Ehrlichia muris eauclairensis Negative (Negative)
== END 2024-07-25 21:36 | disposition home or self-care (01) ==
PROVIDERS: Emergency Provider Physician Assistant
DX: B34.9 Viral infection, unspecified (principal); R91.8 Other nonspecific abnormal finding of lung field
CPT/HCPCS: 71250; 80053; 86668; 87637; 87798; 96361; 96365; 96375; 99285; 71046; 81003; 85025; 86308; 86618; 99284; J0131; J0780; J1885